=== PATIENT | male | born 1935 | race Caucasian/White ===

== ENCOUNTER 2017-08-16 19:08 | Inpatient (IN) | payer MEDICARE, OTHER ==
[~2017-08-16] VITALS: Ht 185.4 cm; Wt 80.7 kg
--- NOTE | ~2017-08-16 | EC ---
PATIENT:JIMENA COX DATE OF SERVICE: 08/16/17 SEX: M MEDICAL RECORD: [id number] DATE OF : 39 LOCATION:D.M2 D.211 AGE OF PATIENT: 82 ADMISSION DATE: 08/16/17 REFERRING PHYSICIAN: INTERPRETING PHYSICIAN: DOYLE POSADA MD ECHOCARDIOGRAM REPORT ECHO CHARGES 4 ECHO COMPLETE Date: 08/17 CLINICAL DIAGNOSIS: CHF ECHOCARDIOGRAPHIC MEASUREMENTS (adult normal given) AC root (d.<3.7cm) 3.4 cm LV Septum d (<1.2 cm> 1.2 cm Valve Excursion 1.4 cm LV Septum (systole) 2.0 cm Left Atria (s.<4.0cm> 3.3 cm LVPW d(<1.2cm) 1.4 cm RV (d.<2.3cm) 2.1 cm LVPW (sytole) 1.8 cm LV diastole(<5.6CM) 5.9 cm MV E-F(>70mm/sec) cm LV systole 4.5 cm LVOT Diameter 1.8 cm MV exc.(>10mm) cm Est.ejection fraction (50-75%) % DOPPLER: LVIT cm/sec A 77.0 cm/sec E 112 cm/sec LA cm/sec RVSP 25.1 mmHg LVOT 78.0 cm/sec AOP1/2T m/s Asc. Ao 153 cm/sec RVOT 66.0 cm/sec RA cm/sec PA 111 cm/sec AV Gradient Peak 9.3 mmHg AV Mean 4.2 mmHg AV Area 1.2 cm MV Gradient Peak 4.6 mmHg MV Mean 1.8 mmHg MV Area cm COMMENTS: Disc Ruler Operator: 1 LUIS DELGADOOE Radiation Protection Technician: 1 Dr. Posada TAPE# PACS Pericardial Effusion N DATE OF SERVICE: 08/17/2017 ECHOCARDIOGRAM FINDINGS: 1. Left ventricular chamber size is mildly dilated. Left ventricular systolic function is markedly reduced, overall ejection fraction estimated at 20% to 25%. 2. Left atrium is within normal limits at 3.3 cm. Right atrium and right ventricle chamber sizes are mildly dilated. 3. Valvular structure have normal structure and motion. ECHOCARDIOGRAM REPORT [id number] JIMENA COX 4. Doppler interrogation reveals moderate tricuspid regurgitation, no other valvular insufficiency or stenosis. Pulmonary systolic pressure is estimated at 25 mmHg. 5. No evidence of pericardial effusion or left ventricular thrombus. TRANSINT:[id number] Voice Confirmation ID: [id number] DOCUMENT ID: [id number] DOYLE POSADA MD at 1100 CC: [id number] DICTATION DATE: 08/18/17 1041 CONTRACT MODELER: 08/18/17 1052 DIS IN 08/25/17 [facility] [address] [id number]
[2017-08-16] MEDS ORDERED: TESSALON PERLE100 MG PO (19:21)
[2017-08-16] MEDS ORDERED: LIPITOR40 MG PO (19:21)
[2017-08-16] MEDS ORDERED: PROAIR HFA8.5 GM INH (19:21)
[2017-08-16] MEDS ORDERED: PULMICORT0.5 MG/21 INH (19:22)
[2017-08-16] MEDS ORDERED: CETIRIZINE HCL5 MG PO (19:22)
[2017-08-16] MEDS ORDERED: OPTIVE EYE DROP30 ML EACH EYE (19:22)
[2017-08-16] MEDS ORDERED: COZAAR25 MG PO (19:23)
[2017-08-16] MEDS ORDERED: NOVOLIN 70/30 110 ML (19:23)
[2017-08-16] MEDS ORDERED: DALIRESP500 MCG PO (19:24)
[2017-08-16] MEDS ORDERED: MYSOLINE 50 MG50 MG PO (19:24)
[2017-08-16] MEDS ORDERED: FLOMAX0.4 MG PO (19:24)
[2017-08-16] MEDS ORDERED: METOPROLOL TART25 MG (19:24)
[2017-08-16] MEDS ORDERED: STIOLTO RESPIMAT4 GM INH (19:24)
[2017-08-16 19:54] LABS: BASOPHILS 0.2 % (0-2); EOSINOPHILS 0.2 % (0-7); HEMATOCRIT 35.3 % (42.0-54.0); HEMOGLOBIN 11.1 g/dL (13.5-17.5); IMMATURE GRANULOCYTES 0.3 % (0-5); LYMPHOCYTES 1.7 % (15-50); MCH 30.9 pg (26.0-34.0); MCHC 31.4 g/dL (31.0-37.0); MCV 98.3 fL (80.0-100.0); MEAN PLATELET VOLUME 9.9 fL (7.4-10.4); MONOCYTES 4.7 % (2-11); NEUTROPHILS 92.9 % (40-80); PLATELET COUNT 299 10x3/uL (130-400); RBC 3.59 10x6/uL (4.20-6.10)
[2017-08-16 20:10] LABS: APTT 28.7 SECONDS (22.8-39.4); INR 1.14 (0.85-1.17); PROTIME 14.2 SECONDS (11.6-15.0)
[2017-08-16 20:11] LABS: D-DIMER-QUANTITATIVE 1.37 ug/mLFEU (0.20-0.54)
[2017-08-16 21:28] LABS: ALBUMIN 2.8 g/dL (3.4-5.0); ALKALINE PHOSPHATASE 96 U/L (46-116); ALT (SGPT) 41 U/L (10-68); CALC OSMOLALITY 289 mosm/kg (275-300); CALCIUM 9.2 mg/dL (8.5-10.1); CARBON DIOXIDE 24.6 mmol/L (21.0-32.0); CHLORIDE - SERUM 100 mmol/L (98-107); CREATININE - SERUM 1.2 mg/dL (0.6-1.3); GLUCOSE 199 mg/dL (74-106); POTASSIUM - SERUM 5.1 mmol/L (3.5-5.1); PROTEIN - SERUM 7.7 g/dL (6.4-8.2); SODIUM 139 mmol/L (136-145); UREA NITROGEN 30 mg/dL (7-18); eGFR NON AFRICAN AMERICAN 62 mL/min (90-120)
[2017-08-16 21:49] LABS: CKMB 12.8 U/L (0.0-3.6); CREATINE KINASE 220 UL (21-232); PRO BNP 4551 pg/mL (0-450)
[2017-08-16 21:55] LABS: TROPONIN-I 0.351 ng/mL (0.000-0.060)
[2017-08-16 23:50] VITALS: BP 125/63
[2017-08-17 01:41] VITALS: BP 107/57
[2017-08-17 03:03] LABS: CKMB 15.7 U/L (0.0-3.6); CREATINE KINASE 217 UL (21-232)
[2017-08-17 03:05] LABS: TROPONIN-I 0.486 ng/mL (0.000-0.060)
[2017-08-17 04:00] VITALS: BP 111/55
[2017-08-17 04:58] LABS: ALBUMIN 2.5 g/dL (3.4-5.0); ANION GAP 17.2 mmol/L (8-16); BILIRUBIN - TOTAL 0.35 mg/dL (0.2-1.3); CARBON DIOXIDE 25.5 mmol/L (21.0-32.0); CREATININE - SERUM 1.4 mg/dL (0.6-1.3); POTASSIUM - SERUM 5.7 mmol/L (3.5-5.1)
[2017-08-17 05:54] LABS: BASOPHILS 0.1 % (0-2); EOSINOPHILS 0 % (0-7); HEMOGLOBIN 10.6 g/dL (13.5-17.5); IMMATURE GRANULOCYTES 0.2 % (0-5); LYMPHOCYTES 2.1 % (15-50); MCH 30.8 pg (26.0-34.0); MCHC 31.2 g/dL (31.0-37.0); MCV 98.8 fL (80.0-100.0); MEAN PLATELET VOLUME 10.4 fL (7.4-10.4); MONOCYTES 0.7 % (2-11); NEUTROPHILS 96.9 % (40-80); PLATELET COUNT 328 10x3/uL (130-400); RBC 3.44 10x6/uL (4.20-6.10); WBC 13.5 10x3/uL (4.8-10.8)
[2017-08-17 08:47] LABS: CKMB 12.2 U/L (0.0-3.6); CREATINE KINASE 190 UL (21-232)
[2017-08-17 08:50] LABS: TROPONIN-I 0.374 ng/mL (0.000-0.060)
[2017-08-17 09:22] VITALS: BP 123/59
[2017-08-17 13:09] VITALS: BMI 23.4
[2017-08-17 13:59] LABS: % SATURATION 7 % (15-55); IRON 21 ug/dl (35-150); UNSAT IRON BIND CAPACITY 278 ug/dl (150-375)
[2017-08-17 14:03] LABS: TOTAL IRON BIND CAPACITY 299 ug/dl (260-445)
[2017-08-17 14:32] LABS: MAGNESIUM - SERUM 2.3 mg/dL (1.8-2.4); T4 THYROXIN - FREE 1.21 ng/dL (0.76-1.46); THYROID STIMULATING HORMONE 1.18 uIU/mL (0.36-3.74)
[2017-08-17 14:37] LABS: CREATINE KINASE 180 UL (21-232)
[2017-08-17 14:43] LABS: TROPONIN-I 0.365 ng/mL (0.000-0.060)
[2017-08-17 15:43] VITALS: BP 134/69
[2017-08-17 16:12] VITALS: Ht 185.4 cm; Wt 80.7 kg
[2017-08-17 21:58] VITALS: BP 133/67
[2017-08-18] VITALS (7 sets, daily range): BP systolic 118–149; BP diastolic 63–81
[2017-08-19 04:00] VITALS: BP 131/78
[2017-08-19 07:45] VITALS: BP 152/89
[2017-08-19 08:16] LABS: FOLATE (FOLIC ACID) - SERUM >20.0 ng/mL (>3.0)
[2017-08-19 09:13] LABS: IMMUNOGLOBULIN A 194 mg/dL (61-437); IMMUNOGLOBULIN G 865 mg/dL (700-1600)
[2017-08-19 11:42] VITALS: BP 139/74
[2017-08-19 15:46] VITALS: BP 136/69
[2017-08-19 21:40] VITALS: BP 135/70
[2017-08-20 05:39] LABS: BASOPHILS 0 % (0-2); EOSINOPHILS 0 % (0-7); HEMATOCRIT 37.4 % (42.0-54.0); HEMOGLOBIN 12.2 g/dL (13.5-17.5); IMMATURE GRANULOCYTES 0.2 % (0-5); LYMPHOCYTES 1.3 % (15-50); MCH 31.2 pg (26.0-34.0); MCHC 32.6 g/dL (31.0-37.0); MCV 95.7 fL (80.0-100.0); MEAN PLATELET VOLUME 10.3 fL (7.4-10.4); MONOCYTES 2.2 % (2-11); NEUTROPHILS 96.3 % (40-80); PLATELET COUNT 354 10x3/uL (130-400); RBC 3.91 10x6/uL (4.20-6.10); RDW 13.4 % (11.5-14.5); WBC 16.2 10x3/uL (4.8-10.8)
[2017-08-20 05:45] LABS: ANION GAP 8.9 mmol/L (8-16); CALCIUM 9.8 mg/dL (8.5-10.1); CARBON DIOXIDE 34.1 mmol/L (21.0-32.0); CREATININE - SERUM 1.8 mg/dL (0.6-1.3)
[2017-08-20 06:14] VITALS: BP 135/80
[2017-08-20 06:33] VITALS: BP 148/75
[2017-08-20 07:40] VITALS: BP 150/80
[2017-08-20 11:19] VITALS: BP 145/77
[2017-08-20 15:35] VITALS: BP 115/45
[2017-08-20 15:48] LABS: APPEARANCE HAZY (CLEAR); COLOR YELLOW (YELLOW); SPECIFIC GRAVITY 1.015 (1.005-1.020)
[2017-08-20 15:49] LABS: BILIRUBIN NEGATIVE (NEGATIVE); GLUCOSE NEGATIVE (NEGATIVE); KETONE NEGATIVE (NEGATIVE); NITRITE NEGATIVE (NEGATIVE); PROTEIN 1+ mg/dL (NEGATIVE); RED CELLS - URINE 0-5 /hpf (0-5); UROBILINOGEN NORMAL (NORMAL); WHITE CELLS - URINE 25-50 /hpf (0-5)
[2017-08-20 15:50] LABS: BACTERIA MODERATE /hpf (NONE SEEN); EPITHELIAL CELLS 0-5 /hpf (0-5); YEAST >1+ /hpf (NONE SEEN)
[2017-08-20 20:21] VITALS: BP 120/67
[2017-08-21 02:14] VITALS: BP 111/63
[2017-08-21 04:59] LABS: HEMATOCRIT 36.3 % (42.0-54.0); HEMOGLOBIN 11.6 g/dL (13.5-17.5); MCH 30.3 pg (26.0-34.0); MCV 94.8 fL (80.0-100.0); MEAN PLATELET VOLUME 10.1 fL (7.4-10.4); PLATELET COUNT 298 10x3/uL (130-400); RBC 3.83 10x6/uL (4.20-6.10); RDW 13.4 % (11.5-14.5); WBC 22.3 10x3/uL (4.8-10.8)
[2017-08-21 05:15] VITALS: BP 126/69
[2017-08-21 05:15] LABS: ANION GAP 8.7 mmol/L (8-16); CALCIUM 9.2 mg/dL (8.5-10.1); CARBON DIOXIDE 35.7 mmol/L (21.0-32.0); POTASSIUM - SERUM 4.4 mmol/L (3.5-5.1)
[2017-08-21 05:53] LABS: LYMPHOCYTES 3 % (15-50); MONOCYTES 2 % (2-11); NEUTROPHILS 93 % (40-80); PLATELET ESTIMATE NORMAL
[2017-08-21 08:34] VITALS: BP 126/71
[2017-08-21 12:24] VITALS: BP 150/52
[2017-08-21 16:34] VITALS: BP 159/84
[2017-08-22 05:38] LABS: BASOPHILS 0 % (0-2); EOSINOPHILS 0 % (0-7); HEMATOCRIT 34.5 % (42.0-54.0); HEMOGLOBIN 11.3 g/dL (13.5-17.5); IMMATURE GRANULOCYTES 0.2 % (0-5); LYMPHOCYTES 3.9 % (15-50); MCHC 32.8 g/dL (31.0-37.0); MCV 94.5 fL (80.0-100.0); MEAN PLATELET VOLUME 10.3 fL (7.4-10.4); MONOCYTES 1.9 % (2-11); PLATELET COUNT 304 10x3/uL (130-400); RBC 3.65 10x6/uL (4.20-6.10); RDW 13.4 % (11.5-14.5)
[2017-08-22 05:47] LABS: WBC 16.7 10x3/uL (4.8-10.8)
[2017-08-22 05:56] LABS: CALCIUM 8.7 mg/dL (8.5-10.1); CARBON DIOXIDE 32.5 mmol/L (21.0-32.0); CREATININE - SERUM 1.6 mg/dL (0.6-1.3); POTASSIUM - SERUM 4.5 mmol/L (3.5-5.1)
[2017-08-22 06:02] VITALS: BP 147/78
[2017-08-22 08:47] VITALS: BP 141/77
[2017-08-22 12:38] VITALS: BP 139/70
[2017-08-22 16:27] VITALS: BP 162/79
[2017-08-22 22:07] VITALS: BP 145/82
[2017-08-23 01:57] VITALS: BP 143/70
[2017-08-23 05:25] LABS: BASOPHILS 0 % (0-2); EOSINOPHILS 0 % (0-7); HEMATOCRIT 35.5 % (42.0-54.0); HEMOGLOBIN 11.4 g/dL (13.5-17.5); IMMATURE GRANULOCYTES 0.4 % (0-5); LYMPHOCYTES 2.4 % (15-50); MCH 30.9 pg (26.0-34.0); MCHC 32.1 g/dL (31.0-37.0); MCV 96.2 fL (80.0-100.0); MEAN PLATELET VOLUME 10.1 fL (7.4-10.4); MONOCYTES 2.7 % (2-11); NEUTROPHILS 94.5 % (40-80); PLATELET COUNT 284 10x3/uL (130-400); RBC 3.69 10x6/uL (4.20-6.10); RDW 13.5 % (11.5-14.5); WBC 19.1 10x3/uL (4.8-10.8)
[2017-08-23 05:30] VITALS: BP 151/76
[2017-08-23 05:32] LABS: ANION GAP 2.5 mmol/L (8-16); CALCIUM 8.5 mg/dL (8.5-10.1); CARBON DIOXIDE 35.8 mmol/L (21.0-32.0); CREATININE - SERUM 1.5 mg/dL (0.6-1.3)
[2017-08-23 05:34] LABS: POTASSIUM - SERUM 5.3 mmol/L (3.5-5.1)
[2017-08-23 07:54] VITALS: BP 150/79
[2017-08-23 10:19] LABS: IMMUNOGLOBULIN E 49 IU/mL (0-100)
[2017-08-23 11:29] VITALS: BP 137/71
[2017-08-23 15:34] VITALS: BP 127/77
[2017-08-23 19:44] VITALS: BP 124/79
[2017-08-24 01:25] VITALS: BP 123/68
[2017-08-24 05:58] VITALS: BP 142/64
[2017-08-24 06:03] LABS: HEMATOCRIT 35.9 % (42.0-54.0); HEMOGLOBIN 11.1 g/dL (13.5-17.5); MCH 30.6 pg (26.0-34.0); MCHC 30.9 g/dL (31.0-37.0); MCV 98.9 fL (80.0-100.0); MEAN PLATELET VOLUME 10.2 fL (7.4-10.4); PLATELET COUNT 302 10x3/uL (130-400); RBC 3.63 10x6/uL (4.20-6.10); RDW 13.7 % (11.5-14.5); WBC 25.8 10x3/uL (4.8-10.8)
[2017-08-24 06:07] LABS: ANION GAP 8.7 mmol/L (8-16); CALCIUM 8.5 mg/dL (8.5-10.1); CARBON DIOXIDE 31.6 mmol/L (21.0-32.0); CREATININE - SERUM 1.8 mg/dL (0.6-1.3)
[2017-08-24 06:14] LABS: POTASSIUM - SERUM 6.3 mmol/L (3.5-5.1)
[2017-08-24 07:02] LABS: LYMPHOCYTES 3 % (15-50); MONOCYTES 7 % (2-11); NEUTROPHILS 85 % (40-80)
[2017-08-24 07:03] LABS: PLATELET ESTIMATE NORMAL
[2017-08-24 08:21] LABS: ANION GAP 9.3 mmol/L (8-16); CALCIUM 8.4 mg/dL (8.5-10.1); CARBON DIOXIDE 29.8 mmol/L (21.0-32.0); CREATININE - SERUM 1.8 mg/dL (0.6-1.3); POTASSIUM - SERUM 6.1 mmol/L (3.5-5.1)
[2017-08-24 09:31] VITALS: BP 137/65
[2017-08-24 13:41] VITALS: BP 120/62
[2017-08-24 17:08] VITALS: BP 142/63
[2017-08-24 21:09] VITALS: BP 106/76
[2017-08-25 00:37] VITALS: BP 139/65
[2017-08-25 06:18] VITALS: BP 135/54
[2017-08-25 09:23] VITALS: BP 109/49
[2017-08-25 11:50] VITALS: BP 133/64
[2017-08-25 15:48] VITALS: BP 120/60
[2017-08-25 21:37] VITALS: BP 146/68
== END 2017-08-25 22:40 | disposition hospice, inpatient (51) | DRG 291 ==
LOC: D.ER 19:08 → D.EDHOLD 22:13 → D.M2 22:13
PROVIDERS: Family Medicine; Internal Medicine Nephrology; Internal Medicine Pulmonary Disease
PROC: 0D9670Z Drainage of Stomach with Drainage Device, Via Natural or Artificial Opening (ICD-10-PCS; 2017-08-20)
PROC: 02HV33Z Insertion of Infusion Device into Superior Vena Cava, Percutaneous Approach (ICD-10-PCS; principal; 2017-08-21)
PROC: B548ZZA Ultrasonography of Superior Vena Cava, Guidance (ICD-10-PCS; 2017-08-21)
DX: I50.41 Acute combined systolic (congestive) and diastolic (congestive) heart failure (principal); J18.9 Pneumonia, unspecified organism; C34.90 Malignant neoplasm of unspecified part of unspecified bronchus or lung; C78.7 Secondary malignant neoplasm of liver and intrahepatic bile duct; J44.0 Chronic obstructive pulmonary disease with (acute) lower respiratory infection; J44.1 Chronic obstructive pulmonary disease with (acute) exacerbation; I13.0 Hypertensive heart and chronic kidney disease with heart failure and stage 1 through stage 4 chronic kidney disease, or unspecified chronic kidney disease; J96.11 Chronic respiratory failure with hypoxia; I24.8 Other forms of acute ischemic heart disease; N17.9 Acute kidney failure, unspecified; E44.0 Moderate protein-calorie malnutrition; K56.7 Ileus, unspecified; I47.1 Supraventricular tachycardia; E11.22 Type 2 diabetes mellitus with diabetic chronic kidney disease; N18.9 Chronic kidney disease, unspecified; E87.5 Hyperkalemia; I25.10 Atherosclerotic heart disease of native coronary artery without angina pectoris; Z68.23 Body mass index [BMI] 23.0-23.9, adult; N40.0 Benign prostatic hyperplasia without lower urinary tract symptoms; D50.9 Iron deficiency anemia, unspecified; I48.91 Unspecified atrial fibrillation; E11.649 Type 2 diabetes mellitus with hypoglycemia without coma; E11.40 Type 2 diabetes mellitus with diabetic neuropathy, unspecified; E78.5 Hyperlipidemia, unspecified; I07.1 Rheumatic tricuspid insufficiency; Z95.5 Presence of coronary angioplasty implant and graft

== ENCOUNTER 2017-08-25 22:52 | Inpatient (IN) | payer OTHER ==
[~2017-08-25] VITALS: Ht 185.4 cm; Wt 80.9 kg
[~2017-08-25 22:52] MED LIST: CETIRIZINE HCL5 MG PO; COZAAR25 MG PO; DALIRESP500 MCG PO; FLOMAX0.4 MG PO; LIPITOR40 MG PO; METOPROLOL TART25 MG; MYSOLINE 50 MG50 MG PO; NOVOLIN 70/30 110 ML; OPTIVE EYE DROP30 ML EACH EYE; PROAIR HFA8.5 GM INH; PULMICORT0.5 MG/21 INH; STIOLTO RESPIMAT4 GM INH; TESSALON PERLE100 MG PO
[2017-08-26 00:22] VITALS: BP 146/68; BMI 23.5
[2017-08-26 12:29] VITALS: BP 144/51
[2017-08-26 20:51] VITALS: BP 128/57
[2017-08-27 08:48] VITALS: BP 102/80
[2017-08-28 00:30] VITALS: BP 140/71
[2017-08-28 13:30] VITALS: BP 110/44
[2017-10-23 13:01] VITALS: Ht 185.4 cm; Wt 80.9 kg
== END 2017-08-28 21:21 | DRG 951 ==
LOC: D.M2 22:52
DX: Z51.5 Encounter for palliative care (principal)